=== PATIENT | male | born 1955 | race Caucasian/White ===

== ENCOUNTER 2022-07-07 16:17 | Inpatient (IN) | payer OTHER ==
[2022-07-07 17:48] LABS: BASO % 0.4 % (0-2.0); EOS % 0.9 % (0-4.5); HEMATOCRIT 40.6 % (35.4-49); LYMPH % 25.2 % (8-40); MCH 30.5 pg (25.7-33.7); MCHC 34.6 g/dl (32.0-35.9); MEAN CELL VOLUME 88.2 fl (80-96); MEAN PLT VOLUME 7.2 fl (7.5-11.1); NEUT % 65.5 % (42.8-82.8); PLATELET COUNT 227 10^3/uL (134-434); RDW 13.2 % (11.9-15.9); WHITE BLOOD COUNT 4.9 K/mm3 (4.0-10.0)
[2022-07-07 18:29] LABS: BLOOD UREA NITROGEN 16.2 mg/dL (7-18); CALCIUM 8.5 mg/dL (8.5-10.1); MAGNESIUM 2.4 mg/dL (1.8-2.4)
[2022-07-07 18:30] LABS: ALBUMIN 3.5 g/dl (3.4-5.0)
[2022-07-07 18:33] LABS: CREATININE 0.7 mg/dL (0.55-1.3)
[2022-07-07 18:34] LABS: BILIRUBIN,TOTAL 0.6 mg/dL (0.2-1); TOT PROT 6.6 g/dl (6.4-8.2)
[2022-07-07] MEDS ORDERED: ASPIRIN 81 MG CHEWABLE TABLETS PO ONE (22:09)
[2022-07-07] MEDS ORDERED: ASPIRIN 81 MG CHEWABLE TABLETS ONE (22:30)
[2022-07-08 03:16] VITALS: RESP 20; BMI 22.8
[2022-07-08 07:16] LABS: HEMOGLOBIN 14.6 GM/dL (11.7-16.9); MCH 31.1 pg (25.7-33.7); MCHC 35.6 g/dl (32.0-35.9); MEAN CELL VOLUME 87.4 fl (80-96); MEAN PLT VOLUME 7.4 fl (7.5-11.1); PLATELET COUNT 222 10^3/uL (134-434); RBC 4.69 M/mm3 (4.00-5.60); RDW 13.4 % (11.9-15.9); WHITE BLOOD COUNT 4.1 K/mm3 (4.0-10.0)
[2022-07-08 07:52] LABS: CALCIUM 8.6 mg/dL (8.5-10.1)
[2022-07-08 07:53] LABS: BLOOD UREA NITROGEN 10.3 mg/dL (7-18); MAGNESIUM 2.3 mg/dL (1.8-2.4)
[2022-07-08 07:56] LABS: CREATININE 0.6 mg/dL (0.55-1.3); PHOSPHOROUS 3.6 mg/dL (2.5-4.9)
[2022-07-08 09:02] LABS: URINE APPEARANCE CLEAR; URINE BILIRUBIN NEGATIVE (NEGATIVE); URINE COLOR YELLOW; URINE GLUCOSE (UA) NEGATIVE (NEGATIVE); URINE KETONE NEGATIVE (NEGATIVE); URINE LEUK ESTERASE NEGATIVE (NEGATIVE); URINE NITRITE NEGATIVE (NEGATIVE); URINE PROTEIN NEGATIVE (NEGATIVE); URINE UROBILINOGEN 0.2 mg/dL (0.2-1.0)
[2022-07-08] MEDS ORDERED: ACYCLOVIR 400 MG TABLET PO SCH (10:00)
[2022-07-08] MEDS ORDERED: ASPIRIN COATED 81 MG TABLET.EC PO SCH (10:00)
[2022-07-08] MEDS ORDERED: TIMOLOL 0.5% OPHTHALMIC SOL 5 ML BOTTLE OU SCH (10:00)
[2022-07-08] MEDS ORDERED: ENOXAPARIN NA (PORCINE) 40 MG/0.4 ML DISP.SYRIN SQ SCH (10:00)
[2022-07-08] MEDS ORDERED: BRIMONIDINE TARTRATE 0.15% OPHTHALMIC 5 ML BOTTLE OU SCH (10:00)
[2022-07-08] MEDS ORDERED: amLODIPine BESYLATE 5 MG TABLET (FP) PO SCH (10:00)
[2022-07-08 15:40] VITALS: PULSE 80
[2022-07-08 18:27] VITALS: BP 117/77; TEMP 99
[2022-07-08] MEDS ORDERED: ROSUVASTATIN CA 20 MG TABLET PO SCH (22:00)
== END 2022-07-08 18:36 | disposition home or self-care (01) | DRG 313 ==
LOC: JER 16:17 → JERBED 22:08 → OBSVTOIN 23:36 → J4W 07-08 02:32
PROVIDERS: ADMIT Internal Medicine; ATTEND Internal Medicine
DX: R07.89 Other chest pain (principal); I10 Essential (primary) hypertension; E78.5 Hyperlipidemia, unspecified
CPT/HCPCS: 36415; 70450-TC; 71045-TC-FY; 80048; 80053; 80061; 81003; 83735; 84100; 84443; 84484; 85025; 85027; 85379; 93005; 93010; 93306-TC; 99285-25; C9803-CS; G0378; U0003; U0005

== ENCOUNTER 2022-07-29 10:20 | Emergency (ER) | payer OTHER ==
[2022-07-29 10:32] VITALS: RESP 16; TEMP 97.4; BMI 22.6
[2022-07-29 11:20] VITALS: BP 118/84; PULSE 70
[2022-07-29 12:37] LABS: INR 1.04 (0.83-1.09); PROTHROMBIN TIME (PATIENT) 12.1 SEC (9.7-13.0)
[2022-07-29 12:40] LABS: ACTIVATED PTT 33.6 SECONDS (25.2-36.5)
[2022-07-29 12:55] LABS: CALCIUM 9.7 mg/dL (8.5-10.1)
[2022-07-29 12:56] LABS: ALBUMIN 4.4 g/dl (3.4-5.0)
[2022-07-29 12:59] LABS: CREATININE 0.7 mg/dL (0.55-1.3)
[2022-07-29 13:00] LABS: BILIRUBIN,TOTAL 1.8 mg/dL (0.2-1); TOT PROT 8.2 g/dl (6.4-8.2)
[2022-07-29 13:05] LABS: BASO % 0.2 % (0-2.0); EOS % 0.3 % (0-4.5); HEMATOCRIT 45.1 % (35.4-49); HEMOGLOBIN 16.1 GM/dL (11.7-16.9); LYMPH % 23.4 % (8-40); MCH 31.2 pg (25.7-33.7); MCHC 35.8 g/dl (32.0-35.9); MEAN CELL VOLUME 87.2 fl (80-96); MEAN PLT VOLUME 8.5 fl (7.5-11.1); MONO % 7.3 % (3.8-10.2); NEUT % 68.8 % (42.8-82.8); PLATELET COUNT 238 10^3/uL (134-434); RBC 5.17 M/mm3 (4.00-5.60); RDW 13.4 % (11.9-15.9); WHITE BLOOD COUNT 4.5 K/mm3 (4.0-10.0)
== END 2022-07-29 12:51 | disposition left against medical advice (07) ==
LOC: JER 10:20
DX: R51.9 Headache, unspecified (principal); R53.1 Weakness; R53.83 Other fatigue; R22.33 Localized swelling, mass and lump, upper limb, bilateral; R06.02 Shortness of breath; R68.81 Early satiety
CPT/HCPCS: 36415; 71046-TC-FY; 80053; 84484; 85025; 85610; 85730; 93005; 93010; 99285-25